=== PATIENT | male | born 1985 | race Two or more races ===

== ENCOUNTER 2017-03-06 02:28 | Emergency (ER) | payer OTHER ==
[2017-03-06] MEDS ORDERED: HYDROmorphONE/DILAUDID 1 MG/ML SYR ONE (02:39)
[2017-03-06] MEDS ORDERED: HYDROmorphONE/DILAUDID 1 MG/ML SYR IVP ONE ×2 (02:39→03:04)
--- NOTE | 2017-03-06 02:39 | EDPHY ---
H & P Time Seen by Provider: 03/06/17 02:36 HPI/ROS: Chief Complaint: Abdominal pain HPI: 31-year-old male with no significant medical history woke about 1 o'clock this morning with severe right lower abdominal pain. Pain at worst is about a 10/10. Has had no nausea or vomiting. No diarrhea but has had some constipation. No fevers or chills. Pain is not radiating. It is made worse with bumps in the ambulance ride here. There are no alleviating factors. He did receive 100 mcg of fentanyl from EMS. Does not have a history of the same. Was treated with oral antibiotics for sinus infection about 2 weeks ago. Has not had any diarrhea or other problems associated with this. No history of any surgeries in the past. ROS: 10 point Review of Systems is negative except as noted in the HPI. PMH: None Medications: None Allergies: No known drug allergies Social History: No smoking, occasional alcohol, occasional marijuana Family History: non-contributory Physical Exam: Gen: Awake, Alert, No Distress HEENT: Nose: no rhinorrhea Eyes: PERRLA, EOMI Mouth: Moist mucosa Neck: Supple, no JVD Chest: nontender, lungs clear to auscultation Heart: S1, S2 normal, no murmur Abd: Soft, there is tenderness no right lower quadrant with mild right upper quadrant tenderness with, voluntary guarding Back: no CVA tenderness, no midline tenderness Ext: no edema, non-tender Skin: no rash Neuro: CN II-XII intact, Sensation grossly intact, Strength 5/5 in bilateral upper and lower extremities Constitutional: Initial Vital Signs Temperature (C) 36.4 C 03/06/17 02:45 Heart Rate 77 03/06/17 02:45 Respiratory Rate 18 03/06/17 02:45 Blood Pressure 142/106 H 03/06/17 02:45 O2 Sat (%) 93 03/06/17 02:45 O2 Delivery Mode Nasal Cannula O2 (L/minute) 2 Allergies/Adverse Reactions: No Known Allergies Allergy (Unverified 03/06/17 02:45) Home Medications: Medication Instructions Recorded Hydrocodone/Acetaminophen 1 - 2 each PO Q4-6PRN PRN #10 03/06/17 [Hydrocodon-Acetaminophen 5-325] tablet Medical Decision Making - Diagnostics Imaging: CT scan interpreted by Dr. Allen. There is a 4.5 mm distal right ureteral stone with mild hydro. There is a normal appendix. ED Course/Re-evaluation: CT scan shows a distal ureteral stone on the right. Normal appendix. Patient is improved after IV medications. Patient be discharged to follow up with primary care physician, return for worsening. - Data Points Laboratory Results: Laboratory Results 03/06/17 02:30 03/06/17 02:30 03/06/17 03/06/17 03/06/17 03:30 02:35 02:30 WBC RBC Hgb POC Hgb 17.0 gm/dL gm/dL (14.5-17.3) Hct POC Hct 50 % % (42.8-50.6) MCV MCH MCHC RDW Plt Count MPV Neut % (Auto) Lymph % (Auto) [place] % (Auto) Eos % (Auto) Baso % (Auto) Nucleat RBC Rel Count Absolute Neuts (auto) Absolute Lymphs (auto) Absolute Monos (auto) Absolute Eos (auto) Absolute Basos (auto) Absolute Nucleated RBC Immature Gran % Immature Gran # POC Sodium 144 mEq/L mEq/L (134-144) Sodium 147 mEq/L H mEq/L (134-144) POC Potassium 3.3 mEq/L mEq/L (3.3-5.0) Potassium 3.8 mEq/L mEq/L (3.5-5.2) POC Chloride 106 mEq/L mEq/L (96-108) Chloride 108 mEq/L mEq/L (97-110) Carbon Dioxide 28 mEq/l mEq/l (22-31) Anion Gap 11 mEq/L mEq/L (8-16) POC BUN 6 mg/dL L mg/dL (7-23) BUN 8 mg/dL mg/dL (7-23) Creatinine 0.8 mg/dL mg/dL (0.7-1.3) POC Creatinine 0.8 mg/dL mg/dL (0.8-1.5) Estimated GFR > 60 Glucose 127 mg/dL H mg/dL (70-100) POC Glucose 129 mg/dL H mg/dL (70-100) Calcium 8.7 mg/dL mg/dL (8.5-10.4) Total Bilirubin 0.9 mg/dL mg/dL (0.1-1.4) Conjugated Bilirubin 0.4 mg/dL mg/dL (0.0-0.5) Unconjugated Bilirubin 0.5 mg/dL mg/dL (0.0-1.1) AST 33 IU/L IU/L (17-59) ALT 77 IU/L H IU/L (21-72) Alkaline Phosphatase 106 IU/L IU/L (38-126) Total Protein 7.1 g/dL g/dL (6.3-8.2) Albumin 3.9 g/dL g/dL (3.5-5.0) Lipase 165.0 IU/L IU/L (23-300) Urine Color Pending Urine Appearance Pending Urine pH Pending Ur Specific Martin Pending Urine Protein Pending Urine Ketones Pending Urine Blood Pending Urine Nitrate Pending Urine Bilirubin Pending Urine Urobilinogen Pending Ur Leukocyte Esterase Pending Urine Glucose Pending 03/06/17 02:30 WBC 9.61 10^3/uL H 10^3/uL (3.80-9.50) RBC 5.92 10^6/uL 10^6/uL (4.40-6.38) Hgb 17.3 g/dL g/dL (13.7-17.5) POC Hgb Hct 49.9 % % (40.0-51.0) POC Hct MCV 84.3 fL fL (81.5-99.8) MCH 29.2 pg pg (27.9-34.1) MCHC 34.7 g/dL g/dL (32.4-36.7) RDW 12.3 % % (11.5-15.2) Plt Count 223 10^3/uL 10^3/uL (150-400) MPV 11.4 fL fL (8.7-11.7) Neut % (Auto) 41.1 % % (39.3-74.2) Lymph % (Auto) 41.8 % % (15.0-45.0) [place] % (Auto) 11.2 % % (4.5-13.0) Eos % (Auto) 4.9 % % (0.6-7.6) Baso % (Auto) 0.6 % % (0.3-1.7) Nucleat RBC Rel Count 0.0 % % (0.0-0.2) Absolute Neuts (auto) 3.94 10^3/uL 10^3/uL (1.70-6.50) Absolute Lymphs (auto) 4.02 10^3/uL H 10^3/uL (1.00-3.00) Absolute Monos (auto) 1.08 10^3/uL H 10^3/uL (0.30-0.80) Absolute Eos (auto) 0.47 10^3/uL H 10^3/uL (0.03-0.40) Absolute Basos (auto) 0.06 10^3/uL 10^3/uL (0.02-0.10) Absolute Nucleated RBC 0.00 10^3/uL 10^3/uL (0-0.01) Immature Gran % 0.4 % % (0.0-1.1) Immature Gran # 0.04 10^3/uL 10^3/uL (0.00-0.10) POC Sodium Sodium POC Potassium Potassium POC Chloride Chloride Carbon Dioxide Anion Gap POC BUN BUN Creatinine POC Creatinine Estimated GFR Glucose POC Glucose Calcium Total Bilirubin Conjugated Bilirubin Unconjugated Bilirubin AST ALT Alkaline Phosphatase Total Protein Albumin Lipase Urine Color Urine Appearance Urine pH Ur Specific Martin Urine Protein Urine Ketones Urine Blood Urine Nitrate Urine Bilirubin Urine Urobilinogen Ur Leukocyte Esterase Urine Glucose Medications Given: Discontinued Medications Hydromorphone HCl (Dilaudid) 0.5 mg IVP EDNOW ONE Stop: 03/06/17 02:40 Last Admin: 03/06/17 02:47 Dose: 0.5 mg Hydromorphone HCl (Dilaudid) 0.5 mg IVP EDNOW ONE Stop: 03/06/17 03:05 Last Admin: 03/06/17 03:05 Dose: 0.5 mg Sodium Chloride (Ns) 1,000 mls @ 0 mls/hr IV ONCE ONE PRN Reason: Wide Open Stop: 03/06/17 02:46 Last Admin: 03/06/17 02:47 Dose: 1,000 mls Ketorolac Tromethamine (Toradol) 15 mg IVP EDNOW ONE Stop: 03/06/17 03:12 Last Admin: 03/06/17 03:17 Dose: 15 mg Point of Care Test Results: 03/06/17 02:35 POC Sodium 144 POC Potassium 3.3 POC Chloride 106 POC BUN 6 L POC Creatinine 0.8 POC Glucose 129 H Departure - Departure Disposition: Home, Routine, Self-Care Clinical Impression: Renal colic on right side Condition: Good Instructions: Kidney Stones (ED) Additional Instructions: You may take ibuprofen and acetaminophen as needed for pain. If these do not control your pain you may take hydrocodone. Do not take acetaminophen if you're taking the hydrocodone. Follow up with her primary care physician in 3-4 days for re-evaluation. Return to the emergency department for worsening pain, uncontrolled nausea or vomiting, fevers, chills, or any other concerns. Referrals: Patient,NotPresent [Unknown] - As per Instructions Mari Anthony MD [Medical Doctor] - As per Instructions Prescriptions: Hydrocodone/Acetaminophen [Hydrocodon-Acetaminophen 5-325] 1 - 2 each PO Q4- 6PRN PRN #10 tablet PRN Reason: Pain, Severe
[2017-03-06 02:43] LABS: % IMMATURE GRANULYOCYTES 0.4 % (0.0-1.1); ABSOLUTE IMMATURE GRANULOCYTES 0.04 10^3/uL (0.00-0.10); ADD DIFF? NO; ADD MORPH? NO; ADD SCAN? NO; ATYPICAL LYMPHOCYTE FLAG 10 (0-99); FRAGMENT RBC FLAG 0 (0-99); HEMATOCRIT 49.9 % (40.0-51.0); HEMOGLOBIN 17.3 g/dL (13.7-17.5); LEFT SHIFT FLG 0 (0-99); LIPEMIA HEMOLYSIS FLAG 90 (0-99); MEAN CELL HEMOGLOBIN 29.2 pg (27.9-34.1); MEAN CELL HEMOGLOBIN CONCENTR. 34.7 g/dL (32.4-36.7); MEAN CELL VOLUME 84.3 fL (81.5-99.8); MEAN PLATELET VOLUME 11.4 fL (8.7-11.7); PLATELET CLUMPS FLAG 10 (0-99); PLATELET COUNT 223 10^3/uL (150-400); RED BLOOD CELL COUNT 5.92 10^6/uL (4.40-6.38); RED CELL DISTRIBUTION WIDTH 12.3 % (11.5-15.2)
[2017-03-06] MEDS ORDERED: NS 1,000 ML IV ONE (02:45)
[2017-03-06] MEDS ORDERED: IOPAMIDOL (ISOVUE-300) 100 ML BTL IV ONE (02:46)
[2017-03-06 02:52] LABS: ALANINE AMINOTRANSFERASE 77 IU/L (21-72); ALBUMIN 3.9 g/dL (3.5-5.0); ALKALINE PHOSPHATASE 106 IU/L (38-126); ANION GAP 11 mEq/L (8-16); ASPARTATE AMINOTRANSFERASE 33 IU/L (17-59); BILIRUBIN,TOTAL 0.9 mg/dL (0.1-1.4); BILIRUBIN-CONJUGATED 0.4 mg/dL (0.0-0.5); BILIRUBIN-UNCONJUGATED 0.5 mg/dL (0.0-1.1); CALCIUM 8.7 mg/dL (8.5-10.4); CARBON DIOXIDE 28 mEq/l (22-31); CHLORIDE 108 mEq/L (97-110); CREATININE 0.8 mg/dL (0.7-1.3); GLOMERULAR FILTRATION RATE > 60; GLUCOSE 127 mg/dL (70-100); POTASSIUM 3.8 mEq/L (3.5-5.2); SODIUM 147 mEq/L (134-144); TOTAL PROTEIN 7.1 g/dL (6.3-8.2)
[2017-03-06] MEDS ORDERED: KETOROLAC 15 MG/1 ML SDV IVP ONE (03:11)
[2017-03-06 03:39] LABS: COLOR YELLOW; LEUKOCYTE ESTERASE,URINE NEGATIVE (NEGATIVE); NITRITE,URINE NEGATIVE (NEGATIVE)
[2017-03-06 03:45] LABS: MUCUS TRACE /lpf (NONE-1+)
[2017-03-06] MEDS ORDERED: HYDROCOD/APAP 5/325 PREPACK#6 BTL TAKEHOME ONE (03:54)
[2017-03-06 04:37] VITALS: BP 146/106; PULSE 79; RESP 12; TEMP 97.9; O2SAT 94
== END 2017-03-06 04:36 | disposition home or self-care (01) ==
DX: N23 Unspecified renal colic (principal)
CPT/HCPCS: 82947-QW; 96374; J1170; J1885; Q9967

== ENCOUNTER 2017-03-08 08:01 | Emergency (ER) | payer OTHER ==
[2017-03-08 08:21] VITALS: TEMP 98.8; O2SAT 96
--- NOTE | 2017-03-08 09:09 | EDPHY ---
H & P Time Seen by Provider: 03/08/17 09:07 HPI/ROS: Chief complaint. Abdominal pain HPI. 31-year-old male this 2 days ago in our emergency department of right- sided kidney stone. Kidney stone was 4.5 mm. He is being treated as an outpatient in using ibuprofen and hydrocodone. He was only prescribed 10 hydrocodone and he has taken 9 of them. He continues to have pain. He somewhat constipated. No fever. He would like a refill for medication. He was referred to physician environmental scientist for outpatient medicine who can't give him an appointment till March 24. No urinary symptoms. ROS Constitutional. no fever/chills, no weakness Eyes. no problems with vision ENT. no sore throat, no nasal drainage Cardiovascular. no chest pain Respiratory. no shortness of breath, no cough Abdominal. Right flank and mid abdominal pain . no problems urinating MS. no calf pain/swelling, no neck/back pain, no joint pain Skin. no rash Lymph. no swollen glands Neuro. no headache, no dizziness, no difficulty walking or with speech Past Medical/Surgical History: Kidney stone Social History: Single, nonsmoker, no alcohol Smoking Status: Never smoked Physical Exam: General Appearance: Alert well-developed male mild distress vital signs stable Eyes: Pupils equal and round no pallor or injection. ENT, Mouth: Mucous membranes are moist. Respiratory: There are no retractions, lungs are clear to auscultation. Cardiovascular: Regular rate and rhythm. Gastrointestinal: Abdomen is soft and patient shows me he is tender in the right mid abdomen but not worse with palpation. Bowel sounds are normal. No masses Neurological: Awake and alert, sensory and motor exams grossly normal. Skin: Warm and dry, no rashes. Musculoskeletal: Neck is supple nontender. Extremities symmetrical, full range of motion. Psychiatric: Patient is oriented X 3, there is no agitation. Constitutional: Initial Vital Signs Temperature (C) 37.1 C 03/08/17 08:18 Heart Rate 86 03/08/17 08:18 Respiratory Rate 17 03/08/17 08:18 Blood Pressure 137/108 H 03/08/17 08:18 O2 Sat (%) 96 03/08/17 08:18 O2 Delivery Mode Room Air Allergies/Adverse Reactions: No Known Allergies Allergy (Verified 03/08/17 08:18) Home Medications: Medication Instructions Recorded Hydrocodone/Acetaminophen 1 - 2 each PO Q4-6PRN PRN #10 03/06/17 [Hydrocodon-Acetaminophen 5-325] tablet Hydrocodone/APAP 5/325 [[place] 1 each PO Q4-6PRN PRN #14 tab 03/08/17 5/325 (*)] Medical Decision Making ED Course/Re-evaluation: Patient remained stable. The patient and I discussed treatment plan including treatment for constipation. We also discussed pain control. He had called the referral physician Dr. Anthony who was unable to see the patient until March 24. I have given the patient the name of Urology and asked him to call for an appointment tomorrow. He is encouraged to return at any point for worsening symptoms including fever, vomiting, worsening pain Differential Diagnosis: Kidney stone that is still present. 4.5 mm stone likely to pass but continuing to cause patient's symptoms. He has constipation likely due to his pain medication. No evidence of fever sepsis. Departure - Departure Disposition: Home, Routine, Self-Care Clinical Impression: Renal colic on right side Condition: Good Instructions: Constipation (ED), Kidney Stones (ED) Additional Instructions: Increased fluids including fruit and prune juice. Magnesium citrate, viviane Colace, milk of magnesia from the pharmacy as needed for constipation. Ibuprofen and hydrocodone for pain. Call Dr. Eden's office tomorrow for further evaluation and treatment. Return for worsening symptoms Referrals: Doctor Marilynn,On Staff, [Medical Doctor] - As per Instructions Cleveland Eden MD [Medical Doctor] - 2-3 days, call for appt. Prescriptions: Hydrocodone/APAP 5/325 [[place] 5/325 (*)] 1 each PO Q4-6PRN PRN #14 tab PRN Reason: Pain, Moderate
[2017-03-08 09:41] VITALS: BP 146/90; PULSE 72; RESP 16
== END 2017-03-08 09:40 | disposition home or self-care (01) ==
DX: N23 Unspecified renal colic (principal)

== ENCOUNTER → 2017-03-10 | Outpatient (CLI) | payer OTHER | LOC: FIMAGING 13:31 | PROVIDERS: ATTEND Specialist | DX: R93.41 Abnormal radiologic findings on diagnostic imaging of renal pelvis, ureter, or bladder (principal) ==

== ENCOUNTER → 2017-03-17 | Outpatient (CLI) | payer OTHER | LOC: FIMAGING 13:38 | PROVIDERS: ATTEND Specialist | DX: N20.1 Calculus of ureter (principal) ==